=== PATIENT | female | born 1970 | race Caucasian/White ===

== ENCOUNTER 2022-11-22 15:43 | Emergency (ER) | payer OTHER ==
[2022-11-22] MEDS ORDERED: Sodium Chloride 0.9% 1,000 ML ONE ×3 (16:18→19:51)
[2022-11-22] MEDS ORDERED: Ondansetron PF 4 MG/2 ML Vial ONE (16:18)
[2022-11-22 16:32] LABS: #Eosinphils 0.1 thou/uL (0.0-0.7); #Lymphocytes 1.4 thou/uL (1.20-3.40); #Monocytes 0.8 thou/uL (0.11-0.59); %Basophils 0.4 % (0.0-1.0); %Eosinophils 0.6 % (0.0-10.0); %Monocytes 6.8 % (0.0-10.0); %Neutrophils 81.2 % (42.0-75.0); Hematocrit 44.2 % (36.0-47.0); Hemoglobin 14.2 g/dL (12.0-16.0); Mean Corpuscular HGB CONC 32.1 g/dL (32.0-36.0); Mean Corpuscular Hemoglobin 28.6 pg (27.0-31.0); Mean Corpuscular Volume 89.1 fl (78.0-98.0); Mean Platelet Volume 6.3 fL (7.4-10.4); Platelet Count 259 10x3/uL (130-400); RBC Distribution Width 13.3 % (11.5-14.5); Red Blood Cell (RBC) Count 4.96 mill/uL (4.20-5.40); White Blood Cell (WBC) Count 12.3 10x3/uL (4.8-10.8)
[2022-11-22 16:48] LABS: ALT (SGPT) 19 U/L (8-55); AST (SGOT) 23 U/L (5-34); Albumin 4.4 g/dL (3.5-5.0); Alkaline Phosphatase 93 U/L (40-110); Anion Gap 18 mmol/L (10-20); BUN (Urea Nitrogen) 9 mg/dL (9.8-20.1); Bilirubin, Total 0.3 mg/dL (0.2-1.2); Calc. Creatinine Clearance 0 mL/min (70-130); Calcium 9.8 mg/dL (7.8-10.44); Carbon Dioxide 18 mmol/L (22-29); Chloride 103 mmol/L (98-107); Estimated GFR 36; Globulin 3.8 g/dL (2.4-3.5); Glucose 92 mg/dL (70-105); Potassium 3.8 mmol/L (3.5-5.1); Protein, Total 8.2 g/dL (6.0-8.3); Sodium 135 mmol/L (136-145)
[2022-11-22 19:10] LABS: Bilirubin Negative (Negative); Blood, Urine Negative (Negative); Clarity Clear (Clear); Glucose, Urine (Dipstick) Negative (Negative); Ketone, Urine Negative (Negative); Leukocyte Trace (Negative); Nitrite Negative (Negative); Protein, Urine (Dipstick) Negative (Neg-Trace); Specific Gravity, Urine 1.006 (1.002-1.036); Urobilinogen 0.2 mg/dL (Less than 2)
[2022-11-22 19:11] LABS: CAUTI Indications for Culture Dysuria,urgency,freq
[2022-11-22 19:16] LABS: Bacteria/HPF None Seen HPF (None Seen); RBC/HPF 0-3 HPF (0-3); Squamous Epithelial 0-3 HPF (0-3); Urine Culture Reflex No No; WBC/HPF 0-3 HPF (0-3)
[2022-11-22] MEDS ORDERED: Promethazine HCl 25 MG/ML VIAL ONE (19:51)
== END 2022-11-22 21:15 | disposition home or self-care (01) ==
LOC: NAV ERS 15:43
DX: A08.4 Viral intestinal infection, unspecified (principal); G40.909 Epilepsy, unspecified, not intractable, without status epilepticus; N18.30 Chronic kidney disease, stage 3 unspecified; Z79.899 Other long term (current) drug therapy
CPT/HCPCS: 36415; 71045; 80053; 81001; 83605; 85025; 93005; 96361; 96365; 96375; J2405; J2550; J7050

== ENCOUNTER 2023-01-05 11:19 | Emergency (ER) | payer OTHER ==
[2023-01-05] MEDS ORDERED: Naproxen 500 MG TAB ONE (11:48)
== END 2023-01-05 12:25 | disposition home or self-care (01) ==
LOC: NAV ERS 11:19
DX: S83.92XA Sprain of unspecified site of left knee, initial encounter (principal); I10 Essential (primary) hypertension; M17.12 Unilateral primary osteoarthritis, left knee; W10.1XXA Fall (on)(from) sidewalk curb, initial encounter

== ENCOUNTER 2023-07-17 09:40 | Emergency (ER) | payer OTHER | END 2023-07-17 10:17 | disposition home or self-care (01) | LOC: NAV ERS 09:40 | DX: L25.5 Unspecified contact dermatitis due to plants, except food (principal); G40.909 Epilepsy, unspecified, not intractable, without status epilepticus; Z79.899 Other long term (current) drug therapy | CPT/HCPCS: 99282 ==

== ENCOUNTER 2024-01-11 12:13 | Emergency (ER) | payer OTHER | END 2024-01-11 13:07 | disposition home or self-care (01) | LOC: NAV ERS 12:13 | DX: S29.011A Strain of muscle and tendon of front wall of thorax, initial encounter (principal); X58.XXXA Exposure to other specified factors, initial encounter | CPT/HCPCS: 99283 ==